=== PATIENT | male | born 2000 | race Caucasian/White ===

== ENCOUNTER 2022-05-28 11:13 | Emergency (ER) | payer BC ==
[~2022-05-28] VITALS: Ht 185.4 cm; Wt 64.0 kg
[2022-05-28 11:32] VITALS: BP 131/81
[2022-05-28] MEDS ORDERED: PREDNISONE 20MG TABLET PO ONE (12:30)
[2022-05-28] MEDS ORDERED: ALBUTEROL (0.083%) 2.5MG/3ML NEB HHN ONE ×2 (12:30→15:15)
[2022-05-28 14:16] LABS: BASOPHILS % 0.3 % (0.0-2.0); EOSINOPHILS % 1.1 % (0.0-5.0); HEMATOCRIT. 43.2 % (42.0-52.0); HEMOGLOBIN. 14.9 g/dL (14.0-18.0); LYMPHOCYTES % 14.4 % (20.0-50.0); MEAN CORPUSCULAR HEMOGLOBIN 30.6 pg (28.0-32.0); MEAN PLATELET VOLUME 8.3 fl (7.4-10.4); NEUTROPHILS % 75.2 % (40.0-76.0); PLATELET 267 x1000/uL (130-400); RED BLOOD CELL COUNT 4.85 mill/uL (4.7-6.1); RED CELL DISTRIBUTION WIDTH 12.5 % (11.6-14.6)
[2022-05-28 14:24] LABS: CHLORIDE 102 mEq/L (98-107)
[2022-05-28] MEDS ORDERED: PREDNISONE 20MG TABLET PO NR (15:15)
[2022-05-28] MEDS ORDERED: ACET-2708 MT (15:38)
[2022-05-28] MEDS ORDERED: ALBU18HF2 IH (15:38)
[2022-05-28] MEDS ORDERED: P50 MT (15:38)
== END 2022-05-28 15:47 | disposition home or self-care (01) ==
LOC: ER 11:13
DX: B34.9 Viral infection, unspecified (principal); R06.02 Shortness of breath
CPT/HCPCS: 36415; 71045; 80053; 85025; 94640; 99284; J7512; Z7610